=== PATIENT | female | born 1940 | race Caucasian/White ===

== ENCOUNTER 2017-05-23 15:42 | Emergency (ER) | payer MEDICARE, OTHER ==
[2017-05-23 15:51] VITALS: BP 137/71; PULSE 87; RESP 16; TEMP 97.8; O2SAT 100
--- NOTE | 2017-05-23 16:03 | ED PDOC ---
HPI:STROKE - Time Time: 15:55 - Historian Historian: Patient - Chief Complaint Chief Complaint: Facial droop - Onset Date: 05/23/17 Time: 03:00 Onset: This morning - Timing Timing: Currently Symptomatic - Location Locate left: Face - Notes: Notes:: 76 year old female with history of high cholesterol and severe arthritis presents to the ED c/o left facial droop, onset 3am this morning. Reports that she woke up at 03:00 to have a drink of water and noticed numbness in left side of face. She went back to sleep and woke up later, facial droop persisted. This morning her left eye was very red with a little burning sensation. Was resolved with over the counter eye drops. She also reports headache in left side since last night as well as a cough productive of phlegm in the morning for the last three days associated with a minor sore throat. Denies weakness in arms and legs , fever, runny nose, blood thinning medications, head injury and blurry vision. PMD: Dr. Mazin Olson MD NIHSS Stroke Scale - Date/Time Evaluation Performed Date Performed: 05/23/17 Time Performed: 15:55 When Was NIHSS Performed: Baseline - How Severe is the Stroke Level of Consciousness: 0=Alert LOC to Questions: 0=Both comments correct LOC to commands: 0=Obeys both correctly Best Gaze: 0=Normal Visual: 0=No visual loss Facial: 3=Complete unilateral paralysis Motor Arm - Left: 0=No drift Motor Arm - Right: 0=No drift Motor Leg - Left: 0=No drift Motor Leg - Right: 0=No drift Limb Ataxia: 0=Absent Sensory: 0=Normal Best Language: 0=No aphasia Dysarthia: 1=Mild to moderate slurring Extinction & Inattention (Neglect): 0=Normal, no object Score: 4 rTPA Inclusion/Exclusion - Refusal of Treatment Patient Refused Treatment: No - Inclusion Criteria for Altepase Patient is 18 years or Older: Yes The Clinical Diagnosis of Ischemic Stroke That is Causing a Potentially Disabling Neurological Deficit: Yes Time of Onset is Well Established to be Less Than 270 Minute Before Treatment Would Begin: No Risk/Benefit Discussed With Patient/Family Member Present: No - Exclusion Criteria for Altepase Uncontrolled Hypertension at Time of Treatment (Systolic BP above 185 or Diastolic BP above 110 mmHg): No Past Medical History Reviewed: Historical Data, Nursing Documentation, Vital Signs Vital Signs: Last Vital Signs Temp 97.8 F 05/23/17 15:47 Pulse 87 05/23/17 15:47 Resp 16 05/23/17 15:47 BP 137/71 05/23/17 15:47 Pulse Ox 100 05/23/17 15:47 - Medical History PMH: Arthritis, Hypercholesterolemia Other PMH: Breast malignancy - Surgical History Surgical History: Cholecystectomy Other surgeries: bilateral knee replacement, bilateral mastectomy - Family History Family History: States: Unknown Family Hx - Social History Current smoker - smoking cessation education provided: No Alcohol: None Drugs: Denies - Home Medications Home Medications: Ambulatory Orders Medication Instructions Recorded Acetaminophen with Codeine 1 tab PO Q6H PRN #10 tab 09/22/15 [Tylenol with Codeine No. 3 300 mg-30 mg] Cyclobenzaprine [Cyclobenzaprine 10 mg PO TID PRN #15 tab 09/22/15 HCl] Nitrofurantoin Macrocrystals 100 mg PO BID #14 cap 09/22/15 [Macrobid] Acyclovir [Zovirax] 400 mg PO 5XD #50 tablet 05/23/17 predniSONE [Prednisone] 60 mg PO DAILY 10 Days tab 05/23/17 - Allergies Allergies/Adverse Reactions: Allergies Allergy/AdvReac Type Severity Reaction Status Date / Time No Known Allergies Allergy Verified 09/22/15 10:55 Review of Systems ROS Statement: Except As Marked, All Systems Reviewed And Found Negative (as per HPI, otherwise negative) Constitutional: Negative for: Fever, Weakness (in arms and legs) Eyes: Negative for: Vision Change ENT: Positive for: Throat Pain (minor). Negative for: Nose Discharge Respiratory: Positive for: Cough (productive of phlegm) Physical Exam - Reviewed Nursing Documentation Reviewed: Yes Vital Signs Reviewed: Yes - Physical Exam Appears: Positive for: Non-toxic, No Acute Distress Head Exam: Positive for: ATRAUMATIC, NORMOCEPHALIC Skin: Positive for: Warm, Dry Eye Exam: Positive for: EOMI, PERRL, Other (LEFT lower eyelid ptosis, LEFT upper eyelid limited movement) ENT: Positive for: Pharynx Is (clear). Negative for: Pharyngeal Erythema, Tonsillar Exudate Neck: Positive for: Painless ROM, Supple Cardiovascular/Chest: Positive for: Regular Rate, Rhythm, Chest Non Tender. Negative for: Murmur Respiratory: Positive for: Normal Breath Sounds. Negative for: Wheezing Gastrointestinal/Abdominal: Positive for: Soft. Negative for: Tenderness Back: Positive for: Normal Inspection. Negative for: Decreased ROM Extremity: Positive for: Normal ROM. Negative for: Deformity Lymphatic: Negative for: Adenopathy Neurologic/Psych: Positive for: Alert, Oriented (x3), Motor/Sensory Deficits ( see NIHSS), Gait (walks with crutch secondary to bilateraly knee arthritis and prostheses), Facial Droop (LEFT involving brow) - Laboratory Results Result Diagrams: 05/23/17 16:48 05/23/17 16:48 - ECG O2 Sat by Pulse Oximetry: 100 (RA) Pulse Ox Interpretation: Normal Medical Decision Making Medical Decision Making: Time: 16:01 Impression: left facial paralysis Differential diagnoses include but are not limited to: Forbes palsy, stroke, brain mass Initial Plan: --Blood type and screen --CT head --EKG --CMP --Hemoglobin A1C --Lipid panel --Magnesium --Phosphorus --Troponin --CBC --PTT 16:[address] FINDINGS: HEMORRHAGE: No intracranial hemorrhage. BRAIN: The villanueva-white matter differentiation is well preserved. There is no mass effect or definitive edema pattern appreciate including the cortex. There is stable expansion of the ventriculosulcal and cisternal spaces however in a pattern most compatible with diffuse cerebral atrophy. No suspicious extra- axial fluid collection is identified in the midline brain anatomy appears grossly nonfocal as imaged. VENTRICLES: Unremarkable. No hydrocephalus. CALVARIUM: Unremarkable. PARANASAL SINUSES: Unremarkable as visualized. No significant inflammatory changes. MASTOID AIR CELLS: Unremarkable as visualized. No inflammatory changes. OTHER FINDINGS: None. IMPRESSION: Stable limited age-related neuro degenerative changes are identified which are age-appropriate as compared to prior unenhanced head CT 09/22/2015. No definite acute intracranial findings. Follow-up MRI or CT are available as clinically warranted. Accession No. : [id number] Patient Name / ID : JAVY CASTILLO / [id number] Exam Date : 05/23/2017 16:39:07 ( Approved ) Study Comment : Sex / Age : F / 76Y Creator : festus ronquillo Dictator : William Arshad MD Health Services Information Specialist : Quality Controller : William Arshad MD Approver2 : Report Date : 05/23/2017 16:58:42 My Comment : HISTORY: cough COMPARISON: No prior. TECHNIQUE: Chest PA and lateral FINDINGS: LUNGS: No active pulmonary disease. A small calcified granuloma seen the right base laterally. PLEURA: No significant pleural effusion identified. No pneumothorax apparent. CARDIOVASCULAR: Normal. OSSEOUS STRUCTURES: No significant abnormalities. VISUALIZED UPPER ABDOMEN: Normal. OTHER FINDINGS: None. IMPRESSION: No acute cardiopulmonary disease appreciated. Mild hypokalemia and hypomagnesemia. No emergently significant lab abnormalities. Supplementation ordered. DW pt findings and plan of care. Clinical presentation most c/w bells palsy, CVA far less likely however there is risk given age. Pt eager to go home. Advised urgent neurology follow up. Questions/concerned addressed and answered. Scribe Attestation: Documented by Siomara Boo, acting as a scribe for Sunita Mckeon MD Provider Scribe Attestation: All medical record entries made by the Scribe were at my direction and personally dictated by me. I have reviewed the chart and agree that the record accurately reflects my personal performance of the history, physical exam, medical decision making, and the department course for this patient. I have also personally directed, reviewed, and agree with the discharge instructions and disposition. Disposition - Clinical Impression Clinical Impression: Facial paralysis/Forbes palsy, Hypokalemia, Hypomagnesemia Counseled Patient/Family Regarding: Studies Performed, Diagnosis, Need For Followup, Rx Given - Disposition Referrals: Francisco Fontana MD [Staff Provider] - 05/24/17 (LLAME A LA OFICINA POR LA MANANA A HACER BELKIS DARELL EN 1-2 LAMBERT) Disposition: Routine/Home Disposition Time: 17:15 Condition: STABLE Additional Instructions: NUVIA MEDICAMENTOS A RECETO CONTINUE TODOS GURDEEP MEDICAMENTOS DIARIO PUEDA MIAH TYLENOL PARA DOLOR DE EDE VISITA RAMESH DOCTOR Y UN NEUROLOGO EN 2-3 LAMBERT A CHEQAR DE NUEVO REGRESA SI SIENTE PEOR Prescriptions: Acyclovir [Zovirax] 400 mg PO 5XD #50 tablet predniSONE [Prednisone] 60 mg PO DAILY 10 Days tab Instructions: [place] Palsy (ED) Print Language: NEPALI
[2017-05-23 16:54] LABS: BASO # 0.1 K/uL (0.0-0.2); BASO % 0.8 % (0.0-2.0); EOS # 0.2 K/uL (0.0-0.7); EOS % 2.8 % (0.0-4.0); LYMPH # 2.1 K/uL (1.0-4.3); LYMPH % 34.3 % (20.0-40.0); MEAN CELL VOLUME 92.9 fl (81.0-99.0); MEAN CORPUSCULAR HEMOGLOBIN 30.9 pg (27.0-31.0); MEAN CORPUSCULAR HGB CONC 33.2 g/dL (33.0-37.0); MONO # 0.5 K/uL (0.0-0.8); MONO % 8.2 % (0.0-10.0); NEUT # 3.4 K/uL (1.8-7.0); NEUT % 53.9 % (50.0-75.0); NRBC % 0.1 % (0.0-0.0); RBC 4.21 Mil/uL (3.80-5.20); RED CELL DISTRIBUTION WIDTH 13.1 % (11.5-14.5); WHITE BLOOD COUNT 6.3 K/uL (4.8-10.8)
[2017-05-23 17:05] LABS: PARTIAL THROMBOPLASTIN TIME 28.9 Seconds (25.6-37.1); PROTHROMBIN TIME 10.7 Seconds (9.8-13.1)
[2017-05-23 17:06] LABS: ALB/GLOB RATIO 1.2 (1.0-2.1); ALBUMIN 4.2 g/dL (3.5-5.0); ALT/SGPT 45 U/L (9-52); AST/SGOT 26 U/L (14-36); BLOOD UREA NITROGEN 20 mg/dl (7-17); CALCIUM 9.4 mg/dL (8.4-10.2); GFR AFRICAN-AMERICAN > 60; GFR NON-AFRICAN AMERICAN 54; HDL CHOLESTEROL 43 MG/DL (30-70); MAGNESIUM 1.4 MG/DL (1.6-2.3)
--- NOTE | 2017-05-23 17:08 | CT ---
PROCEDURE: CT HEAD WITHOUT CONTRAST. HISTORY: LEFT facial droop COMPARISON: Unenhanced head CT 09/22/2015. TECHNIQUE: Axial computed tomography images were obtained through the head/brain without intravenous contrast. Radiation dose: Total exam DLP = 895.62 mGy-cm. This CT exam was performed using one or more of the following dose reduction techniques: Automated exposure control, adjustment of the mA and/or kV according to patient size, and/or use of iterative reconstruction technique. FINDINGS: HEMORRHAGE: No intracranial hemorrhage. BRAIN: The villanueva-white matter differentiation is well preserved. There is no mass effect or definitive edema pattern appreciate including the cortex. There is stable expansion of the ventriculosulcal and cisternal spaces however in a pattern most compatible with diffuse cerebral atrophy. No suspicious extra-axial fluid collection is identified in the midline brain anatomy appears grossly nonfocal as imaged. VENTRICLES: Unremarkable. No hydrocephalus. CALVARIUM: Unremarkable. PARANASAL SINUSES: Unremarkable as visualized. No significant inflammatory changes. MASTOID AIR CELLS: Unremarkable as visualized. No inflammatory changes. OTHER FINDINGS: None. IMPRESSION: Stable limited age-related neuro degenerative changes are identified which are age-appropriate as compared to prior unenhanced head CT 09/22/2015. No definite acute intracranial findings. Follow-up MRI or CT are available as clinically warranted.
--- NOTE | 2017-05-23 17:10 | RAD ---
HISTORY: cough COMPARISON: No prior. TECHNIQUE: Chest PA and lateral FINDINGS: LUNGS: No active pulmonary disease. A small calcified granuloma seen the right base laterally. PLEURA: No significant pleural effusion identified. No pneumothorax apparent. CARDIOVASCULAR: Normal. OSSEOUS STRUCTURES: No significant abnormalities. VISUALIZED UPPER ABDOMEN: Normal. OTHER FINDINGS: None. IMPRESSION: No acute cardiopulmonary disease appreciated.
[2017-05-23] MEDS ORDERED: Potassium Chloride 20 mEq ER Tab PO STA (17:11)
[2017-05-23] MEDS ORDERED: Magnesium Oxide 400 mg Tab UD PO STA (17:11)
[2017-05-23 17:17] LABS: LDL CHOLESTEROL 87 mg/dL (0-129)
[2017-05-23] MEDS ORDERED: Potassium Chloride 20 mEq ER Tab PO ONE (17:28)
--- NOTE | 2017-05-24 08:20 | CARD ---
APPROVED REPORT EKG Measurement Heart [id number] <Conclusion> Normal sinus rhythm Minimal voltage criteria for LVH, may be normal variant Possible inferior infarct, age undetermined Poor R wave progression V1 to V4 Abnormal ECG
== END 2017-05-23 18:31 | disposition home or self-care (01) ==
LOC: H.ER 15:42
DX: G51.0 Bell's palsy (principal); E78.00 Pure hypercholesterolemia, unspecified; E87.6 Hypokalemia; Z85.3 Personal history of malignant neoplasm of breast; Z90.13 Acquired absence of bilateral breasts and nipples; Z96.653 Presence of artificial knee joint, bilateral; E83.42 Hypomagnesemia

== ENCOUNTER 2018-07-08 17:10 | Emergency (ER) | payer MEDICARE, MEDICAID ==
[2018-07-08 17:15] VITALS: RESP 18
[2018-07-08] MEDS ORDERED: Sodium Chloride 0.9% 1,000 ML IV STA (17:25)
--- NOTE | 2018-07-08 17:28 | ED PDOC ---
HPI: Abdomen Time Seen by Provider: 07/08/18 17:17 Chief Complaint (Nursing): Abdominal Pain History Per: Patient Onset/Duration Of Symptoms: Days (1) Current Symptoms Are (Timing): Still Present Severity: Moderate Pain Scale Rating Of: 2 Location Of Pain/Discomfort: Epigastric Quality Of Discomfort: Unable To Describe Associated Symptoms: Nausea, Vomiting, Diarrhea. denies: Fever, Chills Exacerbating Factors: None Alleviating Factors: None Additional Complaint(s): Nausea and vomiting since last night assoc with mild epigastric discomfory. 2 episodes diarrhea yesterday but none today. Denies fever or bloody stool or vomitus. Past Medical History Vital Signs: Last Vital Signs Temp 98.7 F 07/08/18 17:13 Pulse 72 07/08/18 17:13 Resp 18 07/08/18 17:13 BP 146/81 07/08/18 17:13 Pulse Ox 96 07/08/18 17:13 - Medical History PMH: Arthritis, Diabetes, Hypercholesterolemia - Surgical History Surgical History: Cholecystectomy - Family History Family History: States: Unknown Family Hx - Home Medications Home Medications: Ambulatory Orders Medication Instructions Recorded Acetaminophen with Codeine 1 tab PO Q6H PRN #10 tab 09/22/15 [Tylenol with Codeine No. 3 300 mg-30 mg] Cyclobenzaprine [Cyclobenzaprine 10 mg PO TID PRN #15 tab 09/22/15 HCl] Nitrofurantoin Macrocrystals 100 mg PO BID #14 cap 09/22/15 [Macrobid] Acyclovir [Zovirax] 400 mg PO 5XD #50 tablet 05/23/17 predniSONE [Prednisone] 60 mg PO DAILY 10 Days tab 05/23/17 - Allergies Allergies/Adverse Reactions: Allergies Allergy/AdvReac Type Severity Reaction Status Date / Time No Known Allergies Allergy Verified 09/22/15 10:55 Review of Systems ROS Statement: Except As Marked, All Systems Reviewed And Found Negative Constitutional: Negative for: Fever Gastrointestinal: Positive for: Nausea, Vomiting, Abdominal Pain, Diarrhea Physical Exam - Reviewed Nursing Documentation Reviewed: Yes Vital Signs Reviewed: Yes - Physical Exam Appears: Positive for: Non-toxic, No Acute Distress Head Exam: Positive for: ATRAUMATIC, NORMAL INSPECTION, NORMOCEPHALIC Skin: Positive for: Normal Color, Warm, DRY Eye Exam: Positive for: EOMI, Normal appearance, PERRL ENT: Positive for: Normal ENT Inspection Neck: Positive for: Normal, Painless ROM Cardiovascular/Chest: Positive for: Regular Rate, Rhythm Respiratory: Positive for: CNT, Normal Breath Sounds Gastrointestinal/Abdominal: Positive for: Normal Exam, Soft, Tenderness (Mild epigastric and LLQ). Negative for: Guarding, Rebound Back: Positive for: Normal Inspection Extremity: Positive for: Normal ROM Neurologic/Psych: Positive for: Alert, Oriented - Laboratory Results Result Diagrams: 07/08/18 17:50 07/08/18 17:50 - ECG O2 Sat by Pulse Oximetry: 96 Medical Decision Making Medical Decision Making: Abd pain, nausea and vomiting r/o gastroenteritis vs colitis/diverticulitis IV fluids, Zofran, labs and imaging Disposition - Clinical Impression Clinical Impression: Abdominal pain - Patient ED Disposition Is Patient to be Admitted: Transfer of Care - Disposition Disposition: Transfer of Care Disposition Time: 19:03 Condition: FAIR Forms: [facility] (Slovak) Patient Signed Over To: Mingo Moore
[2018-07-08 18:19] LABS: ALB/GLOB RATIO 1.3 (1.0-2.1); ALBUMIN 4.3 g/dL (3.5-5.0); ALT/SGPT 34 U/L (9-52); AST/SGOT 31 U/L (14-36); BLOOD UREA NITROGEN 15 mg/dl (7-17); CALCIUM 9.7 mg/dL (8.4-10.2); GFR NON-AFRICAN AMERICAN 54; LIPASE 289 U/L (23-300)
[2018-07-08 18:23] LABS: BASO % 0.8 % (0.0-2.0); EOS # 0.1 K/uL (0.0-0.7); EOS % 0.9 % (0.0-4.0); HEMOGLOBIN 13.1 g/dL (12.0-16.0); LYMPH # 1.6 K/uL (1.0-4.3); LYMPH % 25.9 % (20.0-40.0); MEAN CELL VOLUME 94.5 fl (81.0-99.0); MEAN CORPUSCULAR HEMOGLOBIN 32.4 pg (27.0-31.0); MEAN CORPUSCULAR HGB CONC 34.3 g/dL (33.0-37.0); MEAN PLATELET VOLUME 8.2 fl (7.2-11.7); MONO # 0.3 K/uL (0.0-0.8); MONO % 5.4 % (0.0-10.0); NEUT # 4.1 K/uL (1.8-7.0); NRBC % 0.4 % (0.0-0.0); RBC 4.05 Mil/uL (3.80-5.20); RED CELL DISTRIBUTION WIDTH 13.1 % (11.5-14.5); WHITE BLOOD COUNT 6.2 K/uL (4.8-10.8)
[2018-07-08] MEDS ORDERED: Sodium Chloride 0.9% 50 ML IV ONE (18:53)
[2018-07-08] MEDS ORDERED: Iodixanol 320 MG/ML 100 ML BOTTLE IV ONE (18:53)
--- NOTE | 2018-07-08 19:32 | ED PDOC ---
- Laboratory Results Result Diagrams: 07/08/18 17:50 07/08/18 17:50 Lab Results: Total Bilirubin 0.7 mg/dl (0.2-1.3) 07/08/18 17:50 AST 31 U/L (14-36) 07/08/18 17:50 ALT 34 U/L (9-52) 07/08/18 17:50 Alkaline Phosphatase 73 U/L (38-126) 07/08/18 17:50 Total Protein 7.6 G/DL (6.3-8.2) 07/08/18 17:50 Albumin 4.3 g/dL (3.5-5.0) 07/08/18 17:50 Globulin 3.3 gm/dL (2.2-3.9) 07/08/18 17:50 Albumin/Globulin Ratio 1.3 (1.0-2.1) 07/08/18 17:50 Lipase 289 U/L (23-300) 07/08/18 17:50 - ECG O2 Sat by Pulse Oximetry: 96 (RA) Pulse Ox Interpretation: Normal Medical Decision Making Medical Decision Making: Time: 1899 -- Patient endorsed to me by Dr. Andrade, pending CT and re-evaluation. Time: 1932 CT RESULTS FINDINGS: LUNG BASES: There is a small calcified granuloma right lower lung. LIVER: Unremarkable. GALLBLADDER AND BILE DUCTS: Gallbladder not seen with certainty may have been surgically removed. PANCREAS: Unremarkable. SPLEEN: Unremarkable. ADRENAL GLANDS: Unremarkable. KIDNEYS, URETERS, AND BLADDER: The kidneys appear within normal limits. There is no hydronephrosis or hydroureter. No urinary calculi are seen. STOMACH AND BOWEL: Unremarkable appearance of the stomach and bowel. No evidence of bowel obstruction. No evidence suggesting enteritis or colitis. APPENDIX: No evidence of acute appendicitis on CT examination. PERITONEUM: No free fluid. No free air. LYMPH NODES: No lymphadenopathy is evident. REPRODUCTIVE: Unremarkable as visualized. VASCULATURE: Atherosclerotic changes present. BONES: No aggressive appearing osseous lesion. No acute osseous pathology evident. There is degenerative change with minimal anterolisthesis at the L4-L5 level. IMPRESSION: No acute intra-abdominal or pelvic abnormality. Postsurgical changes suspected. Atherosclerotic changes. Small calcified granuloma right lower lung. Electronically signed on Jul 08, 2018 7:33:56 PM EST by: Jacinto Boles M.D., Certified by [facility], Diagnostic Radiology Time: 2213 -- On re-evaluation, patient reports symptoms resolved. Patient is now tolerating PO. Patient is stable upon discharge home with a diagnosis of Gastritis. Scribe Attestation: Documented by Dawson Julio, acting as a scribe for Mingo Moore MD. Provider Scribe Attestation: All medical record entries made by the Scribe were at my direction and personally dictated by me. I have reviewed the chart and agree that the record accurately reflects my personal performance of the history, physical exam, medical decision making, and the department course for this patient. I have also personally directed, reviewed, and agree with the discharge instructions and disposition. Disposition Counseled Patient/Family Regarding: Studies Performed, Diagnosis, Rx Given - Clinical Impression Clinical Impression: Abdominal pain, Gastritis - POA Present On Arrival: None - Disposition Disposition: Routine/Home Disposition Time: 22:49 Condition: FAIR Prescriptions: Esomeprazole Magnesium [Nexium] 20 mg PO QAM #14 ecc Ondansetron ODT [Zofran ODT] 4 mg PO Q6 PRN #8 odt PRN Reason: Nausea/Vomiting Instructions: Gastritis Forms: [facility] (Croatian) Print Language: GABONESE
[2018-07-08] MEDS ORDERED: DiphenhydrAMINE 50 mg/ml Inj IV STA (19:33)
[2018-07-08 22:31] VITALS: BP 126/62; PULSE 67; TEMP 98; O2SAT 95
--- NOTE | 2018-07-09 09:19 | CT ---
Date of service: 07/08/2018 PROCEDURE: CT Abdomen and Pelvis with contrast HISTORY: Abdominal pain and vomiting. COMPARISON: 06/26/2010. CT abdomen and pelvis. TECHNIQUE: Intravenous contrast dose: 95 cc Omnipaque 300. Radiation dose: Total exam DLP = 805.05 mGy-cm. This CT exam was performed using one or more of the following dose reduction techniques: Automated exposure control, adjustment of the mA and/or kV according to patient size, and/or use of iterative reconstruction technique. FINDINGS: LOWER THORAX: Unremarkable. LIVER: Unremarkable. No gross lesion or ductal dilatation. GALLBLADDER AND BILE DUCTS: Not visible. Likely prior cholecystectomy. PANCREAS: Unremarkable. No gross lesion or ductal dilatation. SPLEEN: Unremarkable. ADRENALS: Unremarkable. No mass. KIDNEYS AND URETERS: Unremarkable. No hydronephrosis. No solid mass. VASCULATURE: Unremarkable. No aortic aneurysm. Atherosclerotic calcification and mural plaque present. Findings are seen throughout the aorta extending into the iliac vessels. BOWEL: Unremarkable. No obstruction. No gross mural thickening. APPENDIX: Normal appendix. PERITONEUM: Unremarkable. No free fluid. No free air. LYMPH NODES: Unremarkable. No enlarged lymph nodes. BLADDER: Unremarkable. REPRODUCTIVE: Unremarkable. BONES: No acute fracture. Grade 1 anterolisthesis L4-5. OTHER FINDINGS: None. IMPRESSION: No acute or significant findings related to/ accounting for the clinical presentation. Additional benign and/or incidental findings described above. No significant interval change compared to the prior examination(s). Concordant results (preliminary interpretation) provided by [facility]. Procedure Completed: 19:03. Preliminary Report: Interpreted and electronically signed: 19:33. Final Interpretation: 09:15. July 09, 2018
== END 2018-07-08 22:35 | disposition home or self-care (01) ==
LOC: H.ER 17:10
DX: E11.9 Type 2 diabetes mellitus without complications (principal)
CPT/HCPCS: 74177; 80053; 83690; 85025; 96374; 96375; 96376; 99285; J1200; J2405; J2930; J7030; Q9967